=== PATIENT | male | born 1960 | race Caucasian/White ===

== ENCOUNTER 2023-11-24 04:04 | Emergency (ER) | payer BC ==
[2023-11-24 04:15] VITALS: PULSE 81; TEMP 98.3; BMI 22.9
[2023-11-24 05:12] LABS: EPI CELLS 1 /uL (0-25.1); HYALINE CASTS 0 /uL (0-3.1); PH,URINE 5.5 (5.0-8.0); URINE APPEARANCE CLEAR; URINE BILIRUBIN NEGATIVE (NEGATIVE); URINE COLOR DK YELLOW; URINE GLUCOSE (UA) NEGATIVE (NEGATIVE); URINE KETONE NEGATIVE (NEGATIVE); URINE LEUK ESTERASE TRACE (NEGATIVE); URINE NITRITE POSITIVE (NEGATIVE); URINE PROTEIN 1+ (NEGATIVE); URINE RBC 184 /uL (0-23.9); URINE WBC 7 /uL (0-25.8)
[2023-11-24 05:28] VITALS: BP 117/72; RESP 16
== END 2023-11-24 05:45 | disposition home or self-care (01) ==
LOC: JER 04:04
PROC: 0T2BX0Z Change Drainage Device in Bladder, External Approach (ICD-10-PCS; principal; 2023-11-24)
DX: R33.9 Retention of urine, unspecified (principal); R19.09 Other intra-abdominal and pelvic swelling, mass and lump; R14.0 Abdominal distension (gaseous)
CPT/HCPCS: 81003; 87086; 99283-25

== ENCOUNTER 2023-12-10 14:14 | Emergency (ER) | payer BC ==
[2023-12-10 14:39] VITALS: BP 138/85; PULSE 81; RESP 18; TEMP 98; BMI 22.9
[2023-12-10 15:05] LABS: EPI CELLS 0 /uL (0-25.1); HYALINE CASTS 1 /uL (0-3.1); URINE APPEARANCE CLOUDY; URINE BACTERIA 327 /uL (0-1359); URINE BILIRUBIN NEGATIVE (NEGATIVE); URINE COLOR YELLOW; URINE GLUCOSE (UA) NEGATIVE (NEGATIVE); URINE KETONE NEGATIVE (NEGATIVE); URINE LEUK ESTERASE 3+ (NEGATIVE); URINE NITRITE NEGATIVE (NEGATIVE); URINE PROTEIN 1+ (NEGATIVE); URINE UROBILINOGEN 0.2 mg/dL (0.2-1.0); URINE WBC 1400 /uL (0-25.8)
[2023-12-10 15:21] LABS: URINE RBC 329.8 /uL (0-23.9); YEAST NEGATIVE (NEGATIVE)
[2023-12-10 15:57] LABS: BASO % 0.3 % (0-2.0); HEMATOCRIT 41.1 % (35.4-49); LYMPH % 5.3 % (8-40); MCH 30.5 pg (25.7-33.7); MEAN CELL VOLUME 89.6 fl (80-96); MONO % 5.7 % (3.8-10.2); NEUT % 88.7 % (42.8-82.8); PLATELET COUNT 202 10^3/uL (134-434); RBC 4.58 M/mm3 (4.00-5.60); WHITE BLOOD COUNT 11.8 K/mm3 (4.0-10.0)
[2023-12-10 16:20] LABS: POTASSIUM 4.5 mmol/L (3.5-5.1)
[2023-12-10 16:21] LABS: CALCIUM 10.4 mg/dL (8.5-10.1)
[2023-12-10 16:22] LABS: BLOOD UREA NITROGEN 14.6 mg/dL (7-18)
[2023-12-10 16:25] LABS: CREATININE 0.8 mg/dL (0.55-1.3)
== END 2023-12-10 17:35 | disposition home or self-care (01) ==
LOC: JERFT 14:14
DX: R33.9 Retention of urine, unspecified (principal); N30.01 Acute cystitis with hematuria
CPT/HCPCS: 36415; 76775-TC; 80048; 81003; 85025; 87086; 87186; 99284-25

== ENCOUNTER 2023-12-12 21:03 | Inpatient (IN) | payer BC ==
[2023-12-12 22:50] LABS: BASO % 0.5 % (0-2.0); HEMATOCRIT 39.7 % (35.4-49); HEMOGLOBIN 13.7 GM/dL (11.7-16.9); MCH 30.8 pg (25.7-33.7); MCHC 34.6 g/dl (32.0-35.9); MEAN PLT VOLUME 8.4 fl (7.5-11.1); MONO % 8.3 % (3.8-10.2); NEUT % 79.2 % (42.8-82.8); PLATELET COUNT 205 10^3/uL (134-434); RBC 4.45 M/mm3 (4.00-5.60); RDW 13.4 % (11.9-15.9); WHITE BLOOD COUNT 8.2 K/mm3 (4.0-10.0)
[2023-12-12] MEDS: MEROPENEM 2 GM in SODIUM CHLORIDE 100 ML IVPB ONE (23:05)
[2023-12-12 23:15] LABS: ALBUMIN 3.5 g/dl (3.4-5.0); CALCIUM 10.2 mg/dL (8.5-10.1)
[2023-12-12 23:16] LABS: BLOOD UREA NITROGEN 21.9 mg/dL (7-18)
[2023-12-12 23:19] LABS: CREATININE 0.8 mg/dL (0.55-1.3)
[2023-12-12 23:20] LABS: BILIRUBIN,TOTAL 0.5 mg/dL (0.2-1); TOT PROT 6.7 g/dl (6.4-8.2)
[2023-12-12 23:51] LABS: EPI CELLS 0 /uL (0-25.1); HYALINE CASTS 0 /uL (0-3.1); PH,URINE 5.5 (5.0-8.0); URINE APPEARANCE CLOUDY; URINE BACTERIA 62 /uL (0-1359); URINE BILIRUBIN NEGATIVE (NEGATIVE); URINE COLOR YELLOW; URINE GLUCOSE (UA) NEGATIVE (NEGATIVE); URINE KETONE NEGATIVE (NEGATIVE); URINE LEUK ESTERASE 3+ (NEGATIVE); URINE NITRITE NEGATIVE (NEGATIVE); URINE PROTEIN 2+ (NEGATIVE); URINE RBC 1576 /uL (0-23.9); URINE UROBILINOGEN 0.2 mg/dL (0.2-1.0); URINE WBC 2395 /uL (0-25.8)
[2023-12-13 06:40] LABS: MCH 30.3 pg (25.7-33.7); MCHC 34.2 g/dl (32.0-35.9); MEAN CELL VOLUME 88.6 fl (80-96); MEAN PLT VOLUME 8.4 fl (7.5-11.1); PLATELET COUNT 191 10^3/uL (134-434); RBC 4.29 M/mm3 (4.00-5.60); RDW 13.1 % (11.9-15.9); WHITE BLOOD COUNT 5.9 K/mm3 (4.0-10.0)
[2023-12-13 07:19] LABS: ALBUMIN 3.3 g/dl (3.4-5.0); BILIRUBIN,TOTAL 0.7 mg/dL (0.2-1); BLOOD UREA NITROGEN 16.9 mg/dL (7-18); CREATININE 0.7 mg/dL (0.55-1.3); MAGNESIUM 2.1 mg/dL (1.8-2.4); PHOSPHOROUS 3.3 mg/dL (2.5-4.9); POTASSIUM 3.8 mmol/L (3.5-5.1); TOT PROT 6.4 g/dl (6.4-8.2)
[2023-12-13] MEDS: TAMSULOSIN HCL 0.4 MG CAP PO SCH (10:54)
[2023-12-13] MEDS: ESCITALOPRAM OXALATE 20 MG TABLET PO SCH (10:54)
[2023-12-13] MEDS: MEROPENEM 500 MG in DEXTROSE 5%-WATER 100 ML IVPB SCH (10:54)
[2023-12-13 13:01] VITALS: BMI 22.6
[2023-12-13] MEDS: MEROPENEM 1 GM in DEXTROSE 5%-WATER 100 ML IVPB SCH (18:00)
[2023-12-13] MEDS ORDERED: MEROPENEM 500 MG in DEXTROSE 5%-WATER 100 ML IVPB SCH (18:00)
[2023-12-13] MEDS: clonazePAM 0.5 MG TABLET PO SCH (21:11)
[2023-12-13] MEDS: ROSUVASTATIN CA 10 MG TABLET PO SCH (21:11)
[2023-12-14 09:27] LABS: BASO % 0.2 % (0-2.0); EOS % 0.1 % (0-4.5); HEMATOCRIT 39.4 % (35.4-49); HEMOGLOBIN 13.8 GM/dL (11.7-16.9); LYMPH % 8.3 % (8-40); MCHC 35.1 g/dl (32.0-35.9); MEAN CELL VOLUME 88.3 fl (80-96); MEAN PLT VOLUME 8.3 fl (7.5-11.1); MONO % 4.4 % (3.8-10.2); PLATELET COUNT 198 10^3/uL (134-434); RBC 4.46 M/mm3 (4.00-5.60); RDW 13.1 % (11.9-15.9); WHITE BLOOD COUNT 7.1 K/mm3 (4.0-10.0)
[2023-12-14 09:55] LABS: POTASSIUM 3.9 mmol/L (3.5-5.1)
[2023-12-14] MEDS ORDERED: MEROPENEM 500 MG in DEXTROSE 5%-WATER 100 ML IVPB SCH (10:00)
[2023-12-14 10:11] LABS: CALCIUM 10.2 mg/dL (8.5-10.1)
[2023-12-14 10:12] LABS: ALBUMIN 3.5 g/dl (3.4-5.0); BLOOD UREA NITROGEN 19.2 mg/dL (7-18); MAGNESIUM 2.1 mg/dL (1.8-2.4)
[2023-12-14 10:15] LABS: CREATININE 0.8 mg/dL (0.55-1.3)
[2023-12-14 10:16] LABS: BILIRUBIN,TOTAL 1.2 mg/dL (0.2-1); TOT PROT 6.7 g/dl (6.4-8.2)
[2023-12-15 09:04] LABS: BASO % 0.5 % (0-2.0); HEMATOCRIT 38.9 % (35.4-49); LYMPH % 15.4 % (8-40); MCH 29.8 pg (25.7-33.7); MCHC 33.3 g/dl (32.0-35.9); MEAN CELL VOLUME 89.4 fl (80-96); MEAN PLT VOLUME 8.6 fl (7.5-11.1); MONO % 8.6 % (3.8-10.2); NEUT % 75.5 % (42.8-82.8); PLATELET COUNT 199 10^3/uL (134-434); RBC 4.35 M/mm3 (4.00-5.60); WHITE BLOOD COUNT 4.8 K/mm3 (4.0-10.0)
[2023-12-15 10:21] LABS: ALBUMIN 3.3 g/dl (3.4-5.0); BILIRUBIN,TOTAL 1.2 mg/dL (0.2-1); BLOOD UREA NITROGEN 17.9 mg/dL (7-18); CALCIUM 9.9 mg/dL (8.5-10.1); CREATININE 0.7 mg/dL (0.55-1.3); MAGNESIUM 2.1 mg/dL (1.8-2.4); TOT PROT 6.2 g/dl (6.4-8.2)
[2023-12-16 07:28] LABS: CALCIUM 9.8 mg/dL (8.5-10.1)
[2023-12-16 07:29] LABS: ALBUMIN 3.3 g/dl (3.4-5.0); BLOOD UREA NITROGEN 14.4 mg/dL (7-18); MAGNESIUM 2.1 mg/dL (1.8-2.4)
[2023-12-16 07:32] LABS: CREATININE 0.7 mg/dL (0.55-1.3)
[2023-12-16 07:33] LABS: TOT PROT 6.1 g/dl (6.4-8.2)
[2023-12-16 07:37] LABS: BASO % 0.4 % (0-2.0); EOS % 0.1 % (0-4.5); HEMATOCRIT 38.6 % (35.4-49); HEMOGLOBIN 13.1 GM/dL (11.7-16.9); LYMPH % 14.5 % (8-40); MCH 30.3 pg (25.7-33.7); MEAN CELL VOLUME 88.9 fl (80-96); MEAN PLT VOLUME 8.5 fl (7.5-11.1); MONO % 7.7 % (3.8-10.2); NEUT % 77.3 % (42.8-82.8); PLATELET COUNT 198 10^3/uL (134-434); RBC 4.34 M/mm3 (4.00-5.60); RDW 12.9 % (11.9-15.9); WHITE BLOOD COUNT 5.4 K/mm3 (4.0-10.0)
[2023-12-17 09:17] LABS: BASO % 0.5 % (0-2.0); HEMATOCRIT 41.2 % (35.4-49); HEMOGLOBIN 13.8 GM/dL (11.7-16.9); MCH 29.9 pg (25.7-33.7); MCHC 33.6 g/dl (32.0-35.9); MEAN CELL VOLUME 88.9 fl (80-96); MEAN PLT VOLUME 8.8 fl (7.5-11.1); MONO % 4.6 % (3.8-10.2); NEUT % 82.9 % (42.8-82.8); PLATELET COUNT 218 10^3/uL (134-434); RBC 4.63 M/mm3 (4.00-5.60); RDW 12.7 % (11.9-15.9)
[2023-12-17 09:32] LABS: POTASSIUM 4.1 mmol/L (3.5-5.1)
[2023-12-17 09:34] LABS: CALCIUM 10.4 mg/dL (8.5-10.1)
[2023-12-17 09:35] LABS: BLOOD UREA NITROGEN 15.2 mg/dL (7-18)
[2023-12-17 09:38] LABS: CREATININE 0.7 mg/dL (0.55-1.3)
[2023-12-17] MEDS: ERTAPENEM SODIUM 1 GM in SODIUM CHLORIDE 50 ML IVPB SCH (13:59)
[2023-12-17 14:36] VITALS: BP 112/76; PULSE 60; RESP 16; TEMP 97.7
[2023-12-18] MEDS ORDERED: ERTAPENEM SODIUM 1 GM in SODIUM CHLORIDE 50 ML IVPB SCH (10:00)
== END 2023-12-17 15:48 | disposition home or self-care (01) | DRG 690 ==
LOC: JER 21:03 → JERBED 23:47 → J7W 12-13 06:52
PROVIDERS: ADMIT Internal Medicine; ATTEND Nurse Practitioner Acute Care
DX: N10 Acute pyelonephritis (principal); Z16.12 Extended spectrum beta lactamase (ESBL) resistance; K51.90 Ulcerative colitis, unspecified, without complications; E78.5 Hyperlipidemia, unspecified; N40.0 Benign prostatic hyperplasia without lower urinary tract symptoms
CPT/HCPCS: 36415; 76775-TC; 80048; 80053; 81003; 83735; 84100; 85025; 85027; 86140; 87040; 87086; 93005; 93010; 99285-25

== ENCOUNTER 2023-12-18 12:01 | Day surgery (SDC) | payer BC ==
[2023-12-18] MEDS: ERTAPENEM SODIUM 1 GM in SODIUM CHLORIDE 50 ML IVPB ONE (12:25)
[2023-12-18 14:12] VITALS: BP 130/77; PULSE 55; RESP 18; TEMP 97.8
== END 2023-12-18 14:00 | disposition home or self-care (01) ==
LOC: FINJECTION 12:01 → FM/S 12:05 → FINJECTION 14:00
PROVIDERS: ATTEND Internal Medicine
DX: N39.0 Urinary tract infection, site not specified (principal); Z16.12 Extended spectrum beta lactamase (ESBL) resistance
CPT/HCPCS: 96365

== ENCOUNTER 2023-12-19 11:56 | Day surgery (SDC) | payer BC ==
[2023-12-19] MEDS: ERTAPENEM SODIUM 1 GM in DEXTROSE 5%-WATER - 50 ML IVPB ONE (13:05)
[2023-12-19 13:27] LABS: HEMATOCRIT 40.2 % (35.4-49); HEMOGLOBIN 13.5 G/dL (11.7-16.9); MCH 30.5 pg (25.7-33.7); MCHC 33.5 g/dl (32.0-35.9); MEAN CELL VOLUME 90.9 fl (80-96); MEAN PLT VOLUME 8.8 fl (7.5-11.1); PLATELET COUNT 173.2 10^3/uL (134-434); RBC 4.42 10^6/uL (4.00-5.60); RDW 13.5 % (11.9-15.9); WHITE BLOOD COUNT 4.2 10^3/uL (4.0-10.8)
[2023-12-19 13:36] LABS: ANION GAP 6 mmol/L (4-13); CALCIUM 10.3 mg/dl (8.5-10.1); CHLORIDE 103 mmol/L (98-107); CO2 30 mmol/L (21-32); CREATININE 0.7 mg/dl (0.6-1.3); GLUCOSE,RANDOM 114 mg/dl (74-106); SODIUM 139 mmol/L (136-145)
[2023-12-19 19:07] VITALS: BP 110/70; PULSE 60; RESP 18; TEMP 98.5
== END 2023-12-19 14:35 | disposition home or self-care (01) ==
LOC: FINJECTION 11:56 → FM/S 11:59 → FINJECTION 14:35
PROVIDERS: ATTEND Internal Medicine
DX: N39.0 Urinary tract infection, site not specified (principal); Z16.12 Extended spectrum beta lactamase (ESBL) resistance
CPT/HCPCS: 36415; 80048; 85027; 96365

== ENCOUNTER 2023-12-20 11:57 | Day surgery (SDC) | payer BC ==
[2023-12-20] MEDS: ERTAPENEM SODIUM 1 GM in SODIUM CHLORIDE 50 ML IVPB ONE (12:15)
[2023-12-20 13:06] VITALS: BP 115/70; PULSE 75; RESP 16; TEMP 98.1
== END 2023-12-20 13:15 | disposition home or self-care (01) ==
LOC: FINJECTION 11:57 → FM/S 11:58 → FINJECTION 13:15
PROVIDERS: ATTEND Internal Medicine
DX: N39.0 Urinary tract infection, site not specified (principal); Z16.12 Extended spectrum beta lactamase (ESBL) resistance
CPT/HCPCS: 96365

== ENCOUNTER 2023-12-21 11:54 | Day surgery (SDC) | payer BC ==
[2023-12-21] MEDS: ERTAPENEM SODIUM 1 GM in SODIUM CHLORIDE 50 ML IVPB ONE (12:20)
[2023-12-21 12:28] VITALS: RESP 16; TEMP 98.1
[2023-12-21 13:01] VITALS: BP 110/60; PULSE 63
== END 2023-12-21 13:02 | disposition home or self-care (01) ==
LOC: FM/S 11:54 → FINJECTION 11:54
PROVIDERS: ATTEND Internal Medicine
DX: N39.0 Urinary tract infection, site not specified (principal); Z16.12 Extended spectrum beta lactamase (ESBL) resistance
CPT/HCPCS: 96365

== ENCOUNTER 2023-12-22 13:06 | Day surgery (SDC) | payer BC ==
[2023-12-22] MEDS: ERTAPENEM SODIUM 1 GM in SODIUM CHLORIDE 50 ML IVPB SCH (13:49)
[2023-12-22 14:37] VITALS: BP 99/58; PULSE 57; RESP 14; TEMP 98.2
== END 2023-12-22 14:32 | disposition home or self-care (01) ==
LOC: FINJECTION 13:06 → FM/S 13:07 → FINJECTION 14:32
PROVIDERS: ATTEND Internal Medicine
DX: N39.0 Urinary tract infection, site not specified (principal); Z16.12 Extended spectrum beta lactamase (ESBL) resistance
CPT/HCPCS: 96365

== ENCOUNTER 2023-12-23 12:17 | Day surgery (SDC) | payer BC ==
[2023-12-23] MEDS: ERTAPENEM SODIUM 1 GM in SODIUM CHLORIDE 50 ML IVPB ONE (12:49)
[2023-12-23 13:27] VITALS: BP 104/68; PULSE 58; RESP 14; TEMP 97.8
== END 2023-12-23 13:27 | disposition home or self-care (01) ==
LOC: FINJECTION 12:17 → FM/S 12:18 → FINJECTION 13:27
PROVIDERS: ATTEND Internal Medicine
DX: N39.0 Urinary tract infection, site not specified (principal); Z16.12 Extended spectrum beta lactamase (ESBL) resistance
CPT/HCPCS: 96367

== ENCOUNTER 2023-12-24 11:18 | Day surgery (SDC) | payer BC ==
[2023-12-24] MEDS: ERTAPENEM SODIUM 1 GM in SODIUM CHLORIDE 50 ML IVPB ONE (11:33)
[2023-12-24 12:22] VITALS: BP 120/72; PULSE 70; RESP 16; TEMP 97.8
== END 2023-12-24 12:23 | disposition home or self-care (01) ==
LOC: FINJECTION 11:18 → FM/S 11:19 → FINJECTION 12:23
PROVIDERS: ATTEND Internal Medicine
DX: N39.0 Urinary tract infection, site not specified (principal); Z16.12 Extended spectrum beta lactamase (ESBL) resistance
CPT/HCPCS: 96365

== ENCOUNTER 2023-12-30 20:36 | Observation (INO) | payer BC ==
[2023-12-30 21:21] LABS: PH,URINE 6.5 (5.0-8.0); URINE APPEARANCE CLEAR; URINE BILIRUBIN NEGATIVE (NEGATIVE); URINE COLOR YELLOW; URINE GLUCOSE (UA) NEGATIVE (NEGATIVE); URINE KETONE NEGATIVE (NEGATIVE); URINE LEUK ESTERASE 3+ (NEGATIVE); URINE NITRITE NEGATIVE (NEGATIVE); URINE PROTEIN NEGATIVE (NEGATIVE); URINE UROBILINOGEN 0.2 mg/dL (0.2-1.0)
[2023-12-30] MEDS ORDERED: ACETAMINOPHEN 325 MG TABLET (FP) ONE (21:37)
[2023-12-30] MEDS: ACETAMINOPHEN 325 MG TABLET (FP) PO ONE (21:41)
[2023-12-30 21:47] LABS: BASO % 0.3 % (0-2.0); HEMOGLOBIN 13.6 GM/dL (11.7-16.9); LYMPH % 6.9 % (8-40); MCH 30.6 pg (25.7-33.7); MCHC 34.8 g/dl (32.0-35.9); MEAN PLT VOLUME 8.4 fl (7.5-11.1); MONO % 7.5 % (3.8-10.2); NEUT % 85.3 % (42.8-82.8); PLATELET COUNT 178 10^3/uL (134-434); RBC 4.44 M/mm3 (4.00-5.60); RDW 13.2 % (11.9-15.9); WHITE BLOOD COUNT 9.3 K/mm3 (4.0-10.0)
[2023-12-30 22:05] LABS: POTASSIUM 3.5 mmol/L (3.5-5.1)
[2023-12-30 22:08] LABS: CALCIUM 10.1 mg/dL (8.5-10.1)
[2023-12-30 22:09] LABS: ALBUMIN 3.6 g/dl (3.4-5.0); BLOOD UREA NITROGEN 20.3 mg/dL (7-18)
[2023-12-30 22:12] LABS: CREATININE 0.9 mg/dL (0.55-1.3)
[2023-12-30 22:14] LABS: BILIRUBIN,TOTAL 1.2 mg/dL (0.2-1); TOT PROT 6.7 g/dl (6.4-8.2)
[2023-12-30 22:16] LABS: EPI CELLS 1 /uL (0-25.1); HYALINE CASTS 1 /uL (0-3.1); URINE BACTERIA 384 /uL (0-1359); URINE RBC 16 /uL (0-23.9); URINE WBC 466 /uL (0-25.8)
[2023-12-30] MEDS ORDERED: MEROPENEM 1 GM VIAL (RESTRICTED TO ID) IVPB ONE (23:58)
[2023-12-31] MEDS: MEROPENEM 1 GM in DEXTROSE 5%-WATER 100 ML IVPB ONE (00:06)
[2023-12-31] MEDS ORDERED: ROSUVASTATIN CA 5 MG TABLET ONE (03:12)
[2023-12-31] MEDS: clonazePAM 0.5 MG TABLET PO ONE (03:16)
[2023-12-31] MEDS: ROSUVASTATIN CA 10 MG TABLET PO ONE (03:16)
[2023-12-31 06:19] LABS: HEMATOCRIT 38.7 % (35.4-49); HEMOGLOBIN 13.1 GM/dL (11.7-16.9); MCH 30.2 pg (25.7-33.7); MCHC 33.9 g/dl (32.0-35.9); MEAN PLT VOLUME 8.7 fl (7.5-11.1); PLATELET COUNT 178 10^3/uL (134-434); RBC 4.35 M/mm3 (4.00-5.60); RDW 13.2 % (11.9-15.9); WHITE BLOOD COUNT 6.1 K/mm3 (4.0-10.0)
[2023-12-31 06:39] LABS: POTASSIUM 3.6 mmol/L (3.5-5.1)
[2023-12-31 06:42] LABS: CALCIUM 9.9 mg/dL (8.5-10.1)
[2023-12-31 06:43] LABS: ALBUMIN 3.5 g/dl (3.4-5.0); BLOOD UREA NITROGEN 16.3 mg/dL (7-18); MAGNESIUM 2.1 mg/dL (1.8-2.4)
[2023-12-31 06:46] LABS: CREATININE 0.7 mg/dL (0.55-1.3); PHOSPHOROUS 3.3 mg/dL (2.5-4.9)
[2023-12-31 06:47] LABS: BILIRUBIN,TOTAL 1.5 mg/dL (0.2-1); TOT PROT 6.5 g/dl (6.4-8.2)
[2023-12-31] MEDS ORDERED: MEROPENEM 1 GM VIAL (RESTRICTED TO ID) IVPB ONE (08:12)
[2023-12-31] MEDS ORDERED: ESCITALOPRAM OXALATE 10 MG TABLET ONE (08:13)
[2023-12-31] MEDS ORDERED: TAMSULOSIN HCL 0.4 MG CAP ONE (08:13)
[2023-12-31] MEDS ORDERED: ENOXAPARIN NA (PORCINE) 40 MG/0.4 ML DISP.SYRIN SQ ONE (08:13)
[2023-12-31] MEDS: TAMSULOSIN HCL 0.4 MG CAP PO SCH (08:18)
[2023-12-31] MEDS: MEROPENEM 1 GM in DEXTROSE 5%-WATER 100 ML IVPB SCH ×2 (08:18→18:28)
[2023-12-31] MEDS: ESCITALOPRAM OXALATE 20 MG TABLET PO SCH (09:01)
[2023-12-31] MEDS: ENOXAPARIN NA (PORCINE) 40 MG/0.4 ML DISP.SYRIN SQ SCH (09:01)
[2023-12-31] MEDS ORDERED: ASPIRIN COATED 81 MG TABLET.EC PO SCH (10:00)
[2023-12-31 18:32] VITALS: RESP 18
[2023-12-31 20:12] VITALS: BMI 22.6
[2023-12-31] MEDS: ROSUVASTATIN CA 10 MG TABLET PO SCH (21:08)
[2023-12-31] MEDS: clonazePAM 0.5 MG TABLET PO SCH (21:08)
[2024-01-01 07:07] LABS: CALCIUM 10.1 mg/dL (8.5-10.1)
[2024-01-01 07:08] LABS: ALBUMIN 3.4 g/dl (3.4-5.0); BLOOD UREA NITROGEN 15.2 mg/dL (7-18)
[2024-01-01 07:14] LABS: BASO % 0.4 % (0-2.0); HEMATOCRIT 38.5 % (35.4-49); HEMOGLOBIN 13.2 GM/dL (11.7-16.9); LYMPH % 10.9 % (8-40); MCH 30.4 pg (25.7-33.7); MCHC 34.4 g/dl (32.0-35.9); MEAN CELL VOLUME 88.5 fl (80-96); MEAN PLT VOLUME 8.6 fl (7.5-11.1); MONO % 8.3 % (3.8-10.2); NEUT % 80.4 % (42.8-82.8); PLATELET COUNT 165 10^3/uL (134-434); RBC 4.35 M/mm3 (4.00-5.60); WHITE BLOOD COUNT 4.8 K/mm3 (4.0-10.0)
[2024-01-01 08:26] LABS: POTASSIUM 3.6 mmol/L (3.5-5.1)
[2024-01-01 08:31] LABS: CREATININE 0.8 mg/dL (0.55-1.3)
[2024-01-01 08:33] LABS: BILIRUBIN,TOTAL 1.4 mg/dL (0.2-1); TOT PROT 6.3 g/dl (6.4-8.2)
[2024-01-01] MEDS: LACTOBACILLUS ACIDOPHILUS 1 TABLET PO SCH (15:27)
[2024-01-02 07:55] LABS: BASO % 0.7 % (0-2.0); EOS % 0.3 % (0-4.5); HEMATOCRIT 38.4 % (35.4-49); LYMPH % 18.9 % (8-40); MCH 30.1 pg (25.7-33.7); MCHC 33.9 g/dl (32.0-35.9); MEAN CELL VOLUME 88.6 fl (80-96); MEAN PLT VOLUME 8.6 fl (7.5-11.1); MONO % 12.6 % (3.8-10.2); NEUT % 67.5 % (42.8-82.8); PLATELET COUNT 165 10^3/uL (134-434); RBC 4.33 M/mm3 (4.00-5.60); RDW 12.8 % (11.9-15.9); WHITE BLOOD COUNT 3.3 K/mm3 (4.0-10.0)
[2024-01-02 08:12] LABS: POTASSIUM 4.2 mmol/L (3.5-5.1)
[2024-01-02 08:24] LABS: BLOOD UREA NITROGEN 13.9 mg/dL (7-18)
[2024-01-02 09:30] LABS: ALBUMIN 3.3 g/dl (3.4-5.0); BILIRUBIN,TOTAL 1.4 mg/dL (0.2-1); CREATININE 0.7 mg/dL (0.55-1.3); MAGNESIUM 2.1 mg/dL (1.8-2.4); TOT PROT 6.2 g/dl (6.4-8.2)
[2024-01-03 09:00] LABS: BASO % 0.6 % (0-2.0); EOS % 0.2 % (0-4.5); HEMATOCRIT 39.9 % (35.4-49); HEMOGLOBIN 13.6 GM/dL (11.7-16.9); LYMPH % 21.4 % (8-40); MCH 30.1 pg (25.7-33.7); MEAN CELL VOLUME 88.4 fl (80-96); MEAN PLT VOLUME 7.9 fl (7.5-11.1); MONO % 15.7 % (3.8-10.2); NEUT % 62.1 % (42.8-82.8); PLATELET COUNT 172 10^3/uL (134-434); RBC 4.51 M/mm3 (4.00-5.60); RDW 13.3 % (11.9-15.9); WHITE BLOOD COUNT 2.8 K/mm3 (4.0-10.0)
[2024-01-03 09:21] LABS: POTASSIUM 4.2 mmol/L (3.5-5.1)
[2024-01-03 09:25] LABS: ALBUMIN 3.5 g/dl (3.4-5.0); BLOOD UREA NITROGEN 17.9 mg/dL (7-18); CALCIUM 10.6 mg/dL (8.5-10.1)
[2024-01-03 09:29] LABS: CREATININE 0.7 mg/dL (0.55-1.3)
[2024-01-03 09:30] LABS: BILIRUBIN,TOTAL 1.1 mg/dL (0.2-1); TOT PROT 6.7 g/dl (6.4-8.2)
[2024-01-03] MEDS: ERTAPENEM SODIUM 1 GM in SODIUM CHLORIDE 50 ML IVPB SCH (10:30)
[2024-01-04 08:26] LABS: HEMATOCRIT 37.4 % (35.4-49); HEMOGLOBIN 12.7 GM/dL (11.7-16.9); MCH 30.1 pg (25.7-33.7); MEAN CELL VOLUME 88.4 fl (80-96); MEAN PLT VOLUME 8.8 fl (7.5-11.1); PLATELET COUNT 162 10^3/uL (134-434); RBC 4.23 M/mm3 (4.00-5.60); RDW 12.9 % (11.9-15.9); WHITE BLOOD COUNT 3.1 K/mm3 (4.0-10.0)
[2024-01-04 08:41] LABS: POTASSIUM 4.1 mmol/L (3.5-5.1)
[2024-01-04 08:43] LABS: BLOOD UREA NITROGEN 15.9 mg/dL (7-18); CALCIUM 9.9 mg/dL (8.5-10.1)
[2024-01-04 08:47] LABS: CREATININE 0.7 mg/dL (0.55-1.3)
[2024-01-04 13:13] VITALS: BP 115/70; PULSE 58; TEMP 98
== END 2024-01-04 13:30 | disposition home or self-care (01) ==
LOC: JER 20:36 → JERBED 23:45 → UNDOADMOB 23:45 → OBSVTOIN 12-31 01:59 → INTOOBSV 12-31 01:59 → JERBED 12-31 09:13 → J7W 12-31 18:07
PROVIDERS: ADMIT Internal Medicine; ATTEND Internal Medicine
DX: N39.0 Urinary tract infection, site not specified (principal); B96.20 Unspecified Escherichia coli [E. coli] as the cause of diseases classified elsewhere; K51.90 Ulcerative colitis, unspecified, without complications; E78.5 Hyperlipidemia, unspecified; N40.0 Benign prostatic hyperplasia without lower urinary tract symptoms; F41.8 Other specified anxiety disorders
CPT/HCPCS: 0241U-QW; 36415; 36569; 74177-TC; 76872-TC; 80048; 80053; 81003; 83735; 84100; 85025; 85027; 86140; 87040; 87086; 87186; 93005; 93010; 96365; 96366; 96367; 99285-25; G0378

== ENCOUNTER 2024-01-07 11:30 | Day surgery (SDC) | payer BC ==
[2024-01-07] MEDS: ERTAPENEM SODIUM 1 GM in SODIUM CHLORIDE 50 ML IVPB ONE (11:56)
[2024-01-07 12:29] VITALS: BP 123/61; PULSE 74; RESP 17; TEMP 98.2
[2024-01-07 12:34] LABS: HEMATOCRIT 41.8 % (35.4-49); HEMOGLOBIN 14.1 G/dL (11.7-16.9); MCH 30.2 pg (25.7-33.7); MCHC 33.7 g/dl (32.0-35.9); MEAN CELL VOLUME 89.8 fl (80-96); MEAN PLT VOLUME 8.9 fl (7.5-11.1); PLATELET COUNT 155.9 10^3/uL (134-434); RBC 4.66 10^6/uL (4.00-5.60); RDW 13.6 % (11.9-15.9); WHITE BLOOD COUNT 3.5 10^3/uL (4.0-10.8)
[2024-01-07 12:53] LABS: ALBUMIN 4.3 g/dl (3.4-5.0); ALK PHOS 74 U/L (45-117); ANION GAP 7 mmol/L (4-13); BILIRUBIN,TOTAL 1.2 mg/dl (0.2-1); CALCIUM 10.4 mg/dl (8.5-10.1); CHLORIDE 104 mmol/L (98-107); CO2 28 mmol/L (21-32); CREATININE 0.8 mg/dl (0.6-1.3); GLUCOSE,RANDOM 146 mg/dl (74-106); SGOT/AST 27 U/L (15-37); SGPT/ALT 30 U/L (7-52); SODIUM 139 mmol/L (136-145); TOT PROT 6.7 g/dl (6.4-8.2)
== END 2024-01-07 12:32 | disposition home or self-care (01) ==
LOC: FM/S 11:30 → FINFUSION 11:30
PROVIDERS: ATTEND Internal Medicine
DX: N39.0 Urinary tract infection, site not specified (principal); Z16.12 Extended spectrum beta lactamase (ESBL) resistance
CPT/HCPCS: 36415; 80053; 85027; 86140; 96365

== ENCOUNTER 2024-01-08 12:51 | Day surgery (SDC) | payer BC ==
[2024-01-08] MEDS: ERTAPENEM SODIUM 1 GM in SODIUM CHLORIDE 50 ML IVPB ONE (13:09)
[2024-01-08 13:58] VITALS: BP 120/73; PULSE 82; RESP 16; TEMP 98
== END 2024-01-08 13:59 | disposition home or self-care (01) ==
LOC: FINFUSION 12:51 → FM/S 12:51 → FINFUSION 13:59
PROVIDERS: ATTEND Internal Medicine
DX: N39.0 Urinary tract infection, site not specified (principal); Z16.12 Extended spectrum beta lactamase (ESBL) resistance
CPT/HCPCS: 96365

== ENCOUNTER 2024-01-09 11:40 | Day surgery (SDC) | payer BC ==
[2024-01-09] MEDS: ERTAPENEM SODIUM 1 GM in SODIUM CHLORIDE 50 ML IVPB ONE (12:10)
[2024-01-09 13:11] VITALS: BP 125/71; PULSE 55; RESP 17; TEMP 98.2
== END 2024-01-09 12:45 | disposition home or self-care (01) ==
LOC: FM/S 11:40 → FINFUSION 11:40
PROVIDERS: ATTEND Internal Medicine
DX: N39.0 Urinary tract infection, site not specified (principal); Z16.12 Extended spectrum beta lactamase (ESBL) resistance
CPT/HCPCS: 96365

== ENCOUNTER 2024-01-10 12:31 | Day surgery (SDC) | payer BC ==
[2024-01-10] MEDS: ERTAPENEM SODIUM 1 GM in SODIUM CHLORIDE 50 ML IVPB ONE (12:55)
[2024-01-10 14:38] VITALS: BP 134/64; PULSE 76; RESP 18; TEMP 97.8
== END 2024-01-10 13:40 | disposition home or self-care (01) ==
LOC: FINFUSION 12:31 → FM/S 12:32 → FINFUSION 13:40
PROVIDERS: ATTEND Internal Medicine
DX: N39.0 Urinary tract infection, site not specified (principal); Z16.12 Extended spectrum beta lactamase (ESBL) resistance
CPT/HCPCS: 96365

== ENCOUNTER 2024-01-11 12:36 | Day surgery (SDC) | payer BC ==
[2024-01-11] MEDS: ERTAPENEM SODIUM 1 GM in SODIUM CHLORIDE 50 ML IVPB ONE (12:58)
[2024-01-11 13:15] VITALS: BP 100/63; PULSE 72; RESP 18; TEMP 97.8
== END 2024-01-11 13:34 | disposition home or self-care (01) ==
LOC: FINFUSION 12:36 → FM/S 12:36 → FINFUSION 13:34
PROVIDERS: ATTEND Internal Medicine
DX: N39.0 Urinary tract infection, site not specified (principal); Z16.12 Extended spectrum beta lactamase (ESBL) resistance
CPT/HCPCS: 96365

== ENCOUNTER 2024-01-12 13:18 | Day surgery (SDC) | payer BC ==
[2024-01-12] MEDS: ERTAPENEM SODIUM 1 GM in SODIUM CHLORIDE 50 ML IVPB SCH (13:55)
[2024-01-12 15:09] VITALS: BP 105/66; PULSE 51; RESP 18; TEMP 98.9
== END 2024-01-12 14:30 | disposition home or self-care (01) ==
LOC: FINFUSION 13:18 → FM/S 13:40 → FINFUSION 14:30
PROVIDERS: ATTEND Internal Medicine
DX: N39.0 Urinary tract infection, site not specified (principal); Z16.12 Extended spectrum beta lactamase (ESBL) resistance
CPT/HCPCS: 96365

== ENCOUNTER 2024-01-13 12:12 | Day surgery (SDC) | payer BC ==
[2024-01-13] MEDS: ERTAPENEM SODIUM 1 GM in SODIUM CHLORIDE 50 ML IVPB ONE (12:42)
[2024-01-13 13:34] VITALS: BP 121/68; PULSE 78; RESP 14; TEMP 97.8
== END 2024-01-13 13:34 | disposition home or self-care (01) ==
LOC: FINFUSION 12:12 → FM/S 12:13 → FINFUSION 13:34
PROVIDERS: ATTEND Internal Medicine
DX: N39.0 Urinary tract infection, site not specified (principal); Z16.12 Extended spectrum beta lactamase (ESBL) resistance
CPT/HCPCS: 96365

== ENCOUNTER 2024-01-14 11:53 | Day surgery (SDC) | payer BC ==
[2024-01-14] MEDS: ERTAPENEM SODIUM 1 GM in SODIUM CHLORIDE 50 ML IVPB ONE (12:32)
[2024-01-14 13:41] VITALS: BP 105/65; PULSE 57; RESP 16; TEMP 97.6
[2024-01-14 13:55] LABS: HEMATOCRIT 42.5 % (35.4-49); HEMOGLOBIN 14.4 G/dL (11.7-16.9); MCH 30.7 pg (25.7-33.7); MCHC 33.8 g/dl (32.0-35.9); MEAN CELL VOLUME 90.9 fl (80-96); MEAN PLT VOLUME 9.1 fl (7.5-11.1); PLATELET COUNT 154.6 10^3/uL (134-434); RBC 4.68 10^6/uL (4.00-5.60); RDW 13.4 % (11.9-15.9); WHITE BLOOD COUNT 4.9 10^3/uL (4.0-10.8)
[2024-01-14 14:41] LABS: ALBUMIN 4.3 g/dl (3.4-5.0); BILIRUBIN,TOTAL 1.2 mg/dl (0.2-1); CALCIUM 10.8 mg/dl (8.5-10.1); CREATININE 0.8 mg/dl (0.6-1.3); POTASSIUM 4.3 mmol/L (3.5-5.1); TOT PROT 6.8 g/dl (6.4-8.2)
== END 2024-01-14 13:45 | disposition home or self-care (01) ==
LOC: FINFUSION 11:53 → FM/S 11:55 → FINFUSION 13:45
PROVIDERS: ATTEND Internal Medicine
DX: N39.0 Urinary tract infection, site not specified (principal); Z16.12 Extended spectrum beta lactamase (ESBL) resistance
CPT/HCPCS: 36415; 80053; 85027; 86140; 96365

== ENCOUNTER 2024-01-15 11:43 | Day surgery (SDC) | payer BC ==
[2024-01-15] MEDS: ERTAPENEM SODIUM 1 GM in SODIUM CHLORIDE 50 ML IVPB ONE (12:15)
[2024-01-15 14:38] VITALS: BP 105/65; PULSE 56; RESP 18; TEMP 97.7
== END 2024-01-15 12:50 | disposition home or self-care (01) ==
LOC: FINFUSION 11:43 → FM/S 11:44 → FINFUSION 12:50
PROVIDERS: ATTEND Internal Medicine
DX: N39.0 Urinary tract infection, site not specified (principal); Z16.12 Extended spectrum beta lactamase (ESBL) resistance
CPT/HCPCS: 96365

== ENCOUNTER 2024-01-16 11:26 | Day surgery (SDC) | payer BC ==
[2024-01-16] MEDS: ERTAPENEM SODIUM 1 GM in SODIUM CHLORIDE 50 ML IVPB ONE (12:03)
[2024-01-16 13:01] VITALS: BP 115/68; PULSE 56; RESP 18; TEMP 97.9
== END 2024-01-16 13:02 | disposition home or self-care (01) ==
LOC: FINFUSION 11:26 → FM/S 11:27 → FINFUSION 13:02
PROVIDERS: ATTEND Internal Medicine
DX: N39.0 Urinary tract infection, site not specified (principal); Z16.12 Extended spectrum beta lactamase (ESBL) resistance
CPT/HCPCS: 96365

== ENCOUNTER 2024-01-17 11:39 | Day surgery (SDC) | payer BC ==
[2024-01-17] MEDS: ERTAPENEM SODIUM 1 GM in SODIUM CHLORIDE 50 ML IVPB ONE (12:06)
[2024-01-17 12:16] VITALS: PULSE 65; RESP 18; TEMP 98.1
[2024-01-17 12:50] VITALS: BP 149/74
== END 2024-01-17 12:50 | disposition home or self-care (01) ==
LOC: FINFUSION 11:39 → FM/S 11:40 → FINFUSION 12:50
PROVIDERS: ATTEND Internal Medicine
DX: N39.0 Urinary tract infection, site not specified (principal); Z16.12 Extended spectrum beta lactamase (ESBL) resistance
CPT/HCPCS: 96365

== ENCOUNTER 2024-01-18 12:19 | Day surgery (SDC) | payer BC ==
[2024-01-18] MEDS: ERTAPENEM SODIUM 1 GM in SODIUM CHLORIDE 50 ML IVPB ONE (12:53)
[2024-01-18 13:33] VITALS: BP 110/65; PULSE 78; RESP 16; TEMP 98.9
== END 2024-01-18 13:34 | disposition home or self-care (01) ==
LOC: FINFUSION 12:19 → FM/S 12:20 → FINFUSION 13:34
PROVIDERS: ATTEND Internal Medicine
DX: N39.0 Urinary tract infection, site not specified (principal); Z16.12 Extended spectrum beta lactamase (ESBL) resistance
CPT/HCPCS: 96365

== ENCOUNTER 2024-01-19 12:20 | Day surgery (SDC) | payer BC ==
[2024-01-19] MEDS: ERTAPENEM SODIUM 1 GM in SODIUM CHLORIDE 50 ML IVPB SCH (12:44)
[2024-01-19 13:03] VITALS: RESP 18; TEMP 98.2
[2024-01-19 13:28] VITALS: BP 112/62; PULSE 86
== END 2024-01-19 13:28 | disposition home or self-care (01) ==
LOC: FINFUSION 12:20 → FM/S 12:20 → FINFUSION 13:28
PROVIDERS: ATTEND Internal Medicine
DX: N39.0 Urinary tract infection, site not specified (principal); Z16.12 Extended spectrum beta lactamase (ESBL) resistance
CPT/HCPCS: 96365

== ENCOUNTER 2024-01-20 12:02 | Day surgery (SDC) | payer BC ==
[2024-01-20] MEDS: ERTAPENEM SODIUM 1 GM in SODIUM CHLORIDE 50 ML IVPB ONE (12:15)
[2024-01-20 12:57] VITALS: BP 110/68; PULSE 65; RESP 16; TEMP 97.8
== END 2024-01-20 12:59 | disposition home or self-care (01) ==
LOC: FINFUSION 12:02 → FM/S 12:02 → FINFUSION 12:59
PROVIDERS: ATTEND Internal Medicine
DX: N39.0 Urinary tract infection, site not specified (principal); Z16.12 Extended spectrum beta lactamase (ESBL) resistance
CPT/HCPCS: 96365

== ENCOUNTER 2024-01-21 11:19 | Day surgery (SDC) | payer BC ==
[2024-01-21 11:42] LABS: HEMATOCRIT 42.6 % (35.4-49); HEMOGLOBIN 14.3 G/dL (11.7-16.9); MCH 30.3 pg (25.7-33.7); MCHC 33.5 g/dl (32.0-35.9); MEAN CELL VOLUME 90.5 fl (80-96); MEAN PLT VOLUME 8.9 fl (7.5-11.1); PLATELET COUNT 160.2 10^3/uL (134-434); RBC 4.71 10^6/uL (4.00-5.60); RDW 13.6 % (11.9-15.9)
[2024-01-21] MEDS: ERTAPENEM SODIUM 1 GM in SODIUM CHLORIDE 50 ML IVPB ONE (11:52)
[2024-01-21 12:03] LABS: ALBUMIN 4.3 g/dl (3.4-5.0); ALK PHOS 75 U/L (45-117); ANION GAP 7 mmol/L (4-13); BILIRUBIN,TOTAL 1.3 mg/dl (0.2-1); CALCIUM 10.3 mg/dl (8.5-10.1); CHLORIDE 103 mmol/L (98-107); CO2 29 mmol/L (21-32); CREATININE 0.8 mg/dl (0.6-1.3); GLUCOSE,RANDOM 108 mg/dl (74-106); POTASSIUM 4.1 mmol/L (3.5-5.1); SGOT/AST 27 U/L (15-37); SGPT/ALT 42 U/L (7-52); SODIUM 139 mmol/L (136-145); TOT PROT 6.7 g/dl (6.4-8.2)
[2024-01-21 12:36] VITALS: BP 100/76; PULSE 64; RESP 16; TEMP 98.4
== END 2024-01-21 12:00 | disposition home or self-care (01) ==
LOC: FINFUSION 11:19 → FM/S 11:25 → FINFUSION 12:30
PROVIDERS: ATTEND Internal Medicine
DX: N39.0 Urinary tract infection, site not specified (principal); Z16.12 Extended spectrum beta lactamase (ESBL) resistance
CPT/HCPCS: 36415; 80053; 85027; 86140; 96365

== ENCOUNTER 2024-01-22 12:18 | Day surgery (SDC) | payer BC ==
[2024-01-22] MEDS: ERTAPENEM SODIUM 1 GM in SODIUM CHLORIDE 50 ML IVPB ONE (12:36)
[2024-01-22 13:21] VITALS: BP 109/65; PULSE 58; RESP 19; TEMP 98.1
== END 2024-01-22 13:22 | disposition home or self-care (01) ==
LOC: FINFUSION 12:18 → FM/S 12:19 → FINFUSION 13:22
PROVIDERS: ATTEND Internal Medicine
DX: N39.0 Urinary tract infection, site not specified (principal); Z16.12 Extended spectrum beta lactamase (ESBL) resistance
CPT/HCPCS: 96365

== ENCOUNTER 2024-01-23 11:59 | Day surgery (SDC) | payer BC ==
[2024-01-23] MEDS: ERTAPENEM SODIUM 1 GM in SODIUM CHLORIDE 50 ML IVPB ONE (12:29)
[2024-01-23 13:16] VITALS: BP 157/78; PULSE 56; RESP 18; TEMP 98.3
== END 2024-01-23 12:00 | disposition home or self-care (01) ==
LOC: FINFUSION 11:59 → FM/S 12:01
PROVIDERS: ATTEND Internal Medicine
DX: N39.0 Urinary tract infection, site not specified (principal); Z16.12 Extended spectrum beta lactamase (ESBL) resistance
CPT/HCPCS: 96365

== ENCOUNTER 2024-01-24 11:41 | Day surgery (SDC) | payer BC ==
[2024-01-24] MEDS: ERTAPENEM SODIUM 1 GM in SODIUM CHLORIDE 50 ML IVPB ONE (11:54)
[2024-01-24 12:21] VITALS: BP 100/70; PULSE 72; RESP 18; TEMP 97.8
== END 2024-01-24 12:32 | disposition home or self-care (01) ==
LOC: FINFUSION 11:41 → FM/S 11:42 → FINFUSION 12:32
PROVIDERS: ATTEND Internal Medicine
DX: N39.0 Urinary tract infection, site not specified (principal); B96.89 Other specified bacterial agents as the cause of diseases classified elsewhere; Z16.12 Extended spectrum beta lactamase (ESBL) resistance
CPT/HCPCS: 96365

== ENCOUNTER 2024-01-25 12:09 | Day surgery (SDC) | payer BC ==
[2024-01-25] MEDS: ERTAPENEM SODIUM 1 GM in SODIUM CHLORIDE 50 ML IVPB ONE (12:39)
[2024-01-25 13:13] VITALS: BP 127/65; PULSE 68; RESP 18; TEMP 97.8
== END 2024-01-25 13:34 | disposition home or self-care (01) ==
LOC: FINFUSION 12:09 → FM/S 12:09 → FINFUSION 13:34
PROVIDERS: ATTEND Internal Medicine
DX: N39.0 Urinary tract infection, site not specified (principal); Z16.12 Extended spectrum beta lactamase (ESBL) resistance
CPT/HCPCS: 96365

== ENCOUNTER 2024-01-26 12:36 | Day surgery (SDC) | payer BC ==
[2024-01-26] MEDS: ERTAPENEM SODIUM 1 GM in SODIUM CHLORIDE 50 ML IVPB SCH (13:48)
[2024-01-26 14:53] VITALS: BP 114/66; PULSE 51; RESP 14; TEMP 97.8
== END 2024-01-26 14:53 | disposition home or self-care (01) ==
LOC: FINFUSION 12:36 → FM/S 13:25 → FINFUSION 14:53
PROVIDERS: ATTEND Internal Medicine
DX: N39.0 Urinary tract infection, site not specified (principal); Z16.12 Extended spectrum beta lactamase (ESBL) resistance
CPT/HCPCS: 96365

== ENCOUNTER 2024-01-27 11:33 | Day surgery (SDC) | payer BC ==
[2024-01-27] MEDS: ERTAPENEM SODIUM 1 GM in SODIUM CHLORIDE 50 ML IVPB ONE (12:35)
[2024-01-27 13:31] VITALS: BP 100/58; PULSE 60; RESP 18; TEMP 98.2
== END 2024-01-27 13:10 | disposition home or self-care (01) ==
LOC: FINFUSION 11:33 → FM/S 11:38 → FINFUSION 13:10
PROVIDERS: ATTEND Internal Medicine
DX: N39.0 Urinary tract infection, site not specified (principal); Z16.12 Extended spectrum beta lactamase (ESBL) resistance
CPT/HCPCS: 96365

== ENCOUNTER 2024-01-28 11:23 | Day surgery (SDC) | payer BC ==
[2024-01-28] MEDS: ERTAPENEM SODIUM 1 GM in SODIUM CHLORIDE 50 ML IVPB ONE (12:03)
[2024-01-28 12:36] LABS: HEMATOCRIT 44.1 % (35.4-49); HEMOGLOBIN 14.4 G/dL (11.7-16.9); MCH 29.6 pg (25.7-33.7); MCHC 32.7 g/dl (32.0-35.9); MEAN CELL VOLUME 90.7 fl (80-96); MEAN PLT VOLUME 9.1 fl (7.5-11.1); PLATELET COUNT 152.8 10^3/uL (134-434); RBC 4.86 10^6/uL (4.00-5.60); RDW 14.1 % (11.9-15.9); WHITE BLOOD COUNT 3.6 10^3/uL (4.0-10.8)
[2024-01-28 12:51] VITALS: BP 127/75; PULSE 70; RESP 16; TEMP 98.1
[2024-01-28 13:09] LABS: ALBUMIN 4.4 g/dl (3.4-5.0); ALK PHOS 86 U/L (45-117); ANION GAP 9 mmol/L (4-13); BILIRUBIN,TOTAL 1.4 mg/dl (0.2-1); CALCIUM 10.6 mg/dl (8.5-10.1); CHLORIDE 103 mmol/L (98-107); CO2 28 mmol/L (21-32); CREATININE 0.8 mg/dl (0.6-1.3); GLUCOSE,RANDOM 108 mg/dl (74-106); POTASSIUM 3.9 mmol/L (3.5-5.1); SGOT/AST 27 U/L (15-37); SGPT/ALT 46 U/L (7-52); SODIUM 140 mmol/L (136-145); TOT PROT 6.7 g/dl (6.4-8.2)
== END 2024-01-28 12:52 | disposition home or self-care (01) ==
LOC: FINFUSION 11:23 → FM/S 11:24 → FINFUSION 12:52
PROVIDERS: ATTEND Internal Medicine
DX: N39.0 Urinary tract infection, site not specified (principal); Z16.12 Extended spectrum beta lactamase (ESBL) resistance
CPT/HCPCS: 36415; 80053; 85027; 86140; 96365

== ENCOUNTER 2024-01-29 12:00 | Day surgery (SDC) | payer BC ==
[2024-01-29] MEDS: ERTAPENEM SODIUM 1 GM in SODIUM CHLORIDE 50 ML IVPB ONE (12:15)
[2024-01-29 12:52] VITALS: BP 126/72; PULSE 71; RESP 18; TEMP 97.9
== END 2024-01-29 12:53 | disposition home or self-care (01) ==
LOC: FINFUSION 12:00 → FM/S 12:01 → FINFUSION 12:53
PROVIDERS: ATTEND Internal Medicine
DX: N39.0 Urinary tract infection, site not specified (principal); Z16.12 Extended spectrum beta lactamase (ESBL) resistance
CPT/HCPCS: 96365

== ENCOUNTER 2024-01-30 12:25 | Day surgery (SDC) | payer BC ==
[2024-01-30] MEDS: ERTAPENEM SODIUM 1 GM in SODIUM CHLORIDE 50 ML IVPB ONE (12:35)
[2024-01-30 13:14] VITALS: BP 103/65; PULSE 61; RESP 17; TEMP 98.5
== END 2024-01-30 13:15 | disposition home or self-care (01) ==
LOC: FINFUSION 12:25 → FM/S 12:25 → FINFUSION 13:15
PROVIDERS: ATTEND Internal Medicine
DX: N39.0 Urinary tract infection, site not specified (principal); Z16.12 Extended spectrum beta lactamase (ESBL) resistance
CPT/HCPCS: 96365

== ENCOUNTER 2024-01-31 12:08 | Day surgery (SDC) | payer BC ==
[2024-01-31] MEDS: ERTAPENEM SODIUM 1 GM in SODIUM CHLORIDE 50 ML IVPB ONE (12:35)
[2024-01-31 18:21] VITALS: BP 108/67; PULSE 52; RESP 18; TEMP 98.1
== END 2024-01-31 17:57 | disposition home or self-care (01) ==
LOC: FINFUSION 12:08 → FM/S 12:09 → FINFUSION 17:57
PROVIDERS: ATTEND Internal Medicine
DX: N39.0 Urinary tract infection, site not specified (principal); Z16.12 Extended spectrum beta lactamase (ESBL) resistance
CPT/HCPCS: 96365

== ENCOUNTER 2024-02-01 11:40 | Day surgery (SDC) | payer BC ==
[2024-02-01] MEDS: ERTAPENEM SODIUM 1 GM in SODIUM CHLORIDE 50 ML IVPB ONE (12:00)
[2024-02-01 13:00] VITALS: BP 113/61; PULSE 57; RESP 18; TEMP 97.5
== END 2024-02-01 12:52 | disposition home or self-care (01) ==
LOC: FINFUSION 11:40 → FM/S 11:42 → FINFUSION 12:52
PROVIDERS: ATTEND Internal Medicine
DX: N39.0 Urinary tract infection, site not specified (principal); Z16.12 Extended spectrum beta lactamase (ESBL) resistance
CPT/HCPCS: 96365

== ENCOUNTER 2024-02-02 11:53 | Day surgery (SDC) | payer BC ==
[2024-02-02] MEDS: ERTAPENEM SODIUM 1 GM in SODIUM CHLORIDE 50 ML IVPB SCH (12:19)
[2024-02-02 12:54] VITALS: BP 101/67; PULSE 53; RESP 14; TEMP 97.7
== END 2024-02-02 13:01 | disposition home or self-care (01) ==
LOC: FINFUSION 11:53 → FM/S 11:54 → FINFUSION 13:01
PROVIDERS: ATTEND Internal Medicine
DX: N39.0 Urinary tract infection, site not specified (principal); Z16.12 Extended spectrum beta lactamase (ESBL) resistance
CPT/HCPCS: 96365

== ENCOUNTER 2024-02-03 11:32 | Day surgery (SDC) | payer BC ==
[2024-02-03] MEDS: ERTAPENEM SODIUM 1 GM in SODIUM CHLORIDE 50 ML IVPB ONE (11:57)
[2024-02-03 13:00] VITALS: BP 100/70; PULSE 62; RESP 16; TEMP 98.1
== END 2024-02-03 13:01 | disposition home or self-care (01) ==
LOC: FINFUSION 11:32 → FM/S 11:32 → FINFUSION 13:01
PROVIDERS: ATTEND Internal Medicine
DX: N39.0 Urinary tract infection, site not specified (principal); Z16.12 Extended spectrum beta lactamase (ESBL) resistance
CPT/HCPCS: 96365

== ENCOUNTER 2024-02-04 11:35 | Day surgery (SDC) | payer BC ==
[2024-02-04] MEDS: ERTAPENEM SODIUM 1 GM in SODIUM CHLORIDE 50 ML IVPB ONE (12:00)
[2024-02-04 12:51] VITALS: BP 108/65; PULSE 57; RESP 18; TEMP 97.8
[2024-02-04 13:07] LABS: HEMATOCRIT 43.1 % (35.4-49); HEMOGLOBIN 14.4 G/dL (11.7-16.9); MCH 30.2 pg (25.7-33.7); MCHC 33.4 g/dl (32.0-35.9); MEAN CELL VOLUME 90.4 fl (80-96); PLATELET COUNT 147.3 10^3/uL (134-434); RBC 4.77 10^6/uL (4.00-5.60); RDW 13.6 % (11.9-15.9); WHITE BLOOD COUNT 3.9 10^3/uL (4.0-10.8)
[2024-02-04 13:08] LABS: ALBUMIN 4.3 g/dl (3.4-5.0); BILIRUBIN,TOTAL 1.4 mg/dl (0.2-1); CALCIUM 10.5 mg/dl (8.5-10.1); CREATININE 0.8 mg/dl (0.6-1.3); POTASSIUM 4.1 mmol/L (3.5-5.1); TOT PROT 6.9 g/dl (6.4-8.2)
== END 2024-02-04 12:40 | disposition home or self-care (01) ==
LOC: FINFUSION 11:35 → FM/S 11:36 → FINFUSION 12:40
PROVIDERS: ATTEND Internal Medicine
DX: N39.0 Urinary tract infection, site not specified (principal); Z16.12 Extended spectrum beta lactamase (ESBL) resistance
CPT/HCPCS: 36415; 80053; 85027; 86140; 96365

== ENCOUNTER 2024-02-05 12:21 | Day surgery (SDC) | payer BC ==
[2024-02-05] MEDS: ERTAPENEM SODIUM 1 GM in SODIUM CHLORIDE 50 ML IVPB ONE (12:41)
[2024-02-05 14:40] VITALS: BP 122/70; PULSE 70; RESP 18; TEMP 98.1
== END 2024-02-05 13:54 | disposition home or self-care (01) ==
LOC: FINFUSION 12:21 → FM/S 12:22 → FINFUSION 13:54
PROVIDERS: ATTEND Internal Medicine
DX: N39.0 Urinary tract infection, site not specified (principal); Z16.12 Extended spectrum beta lactamase (ESBL) resistance
CPT/HCPCS: 96365

== ENCOUNTER 2024-02-06 11:45 | Day surgery (SDC) | payer BC ==
[2024-02-06] MEDS: ERTAPENEM SODIUM 1 GM in SODIUM CHLORIDE 50 ML IVPB ONE (12:00)
[2024-02-06 12:42] VITALS: BP 107/63; PULSE 57; RESP 18; TEMP 98.7
== END 2024-02-06 12:40 | disposition home or self-care (01) ==
LOC: FINFUSION 11:45 → FM/S 11:47 → FINFUSION 12:40
PROVIDERS: ATTEND Internal Medicine
DX: N39.0 Urinary tract infection, site not specified (principal); Z16.12 Extended spectrum beta lactamase (ESBL) resistance
CPT/HCPCS: 96365

== ENCOUNTER 2024-02-07 11:36 | Day surgery (SDC) | payer BC ==
[2024-02-07] MEDS: ERTAPENEM SODIUM 1 GM in SODIUM CHLORIDE 50 ML IVPB ONE (12:00)
[2024-02-07 12:42] VITALS: BP 100/66; PULSE 59; RESP 16; TEMP 98.4
== END 2024-02-07 12:46 | disposition home or self-care (01) ==
LOC: FM/S 11:36 → FINFUSION 11:36
PROVIDERS: ATTEND Internal Medicine
DX: N39.0 Urinary tract infection, site not specified (principal); Z16.12 Extended spectrum beta lactamase (ESBL) resistance
CPT/HCPCS: 96365

== ENCOUNTER 2024-02-08 12:13 | Day surgery (SDC) | payer BC ==
[2024-02-08] MEDS: ERTAPENEM SODIUM 1 GM in SODIUM CHLORIDE 50 ML IVPB ONE (12:29)
[2024-02-08 13:33] VITALS: BP 108/69; PULSE 61; RESP 18; TEMP 98
[2024-02-11] MEDS ORDERED: NORMAL SALINE FLUSH 0.9% 5 ML SYRINGE IVPUSH SCH (10:00)
== END 2024-02-08 13:38 | disposition home or self-care (01) ==
LOC: FINFUSION 12:13 → FM/S 12:13 → FINFUSION 13:38
PROVIDERS: ATTEND Internal Medicine
DX: N39.0 Urinary tract infection, site not specified (principal); Z16.12 Extended spectrum beta lactamase (ESBL) resistance
CPT/HCPCS: 96365

== ENCOUNTER 2024-02-09 12:22 | Day surgery (SDC) | payer BC ==
[2024-02-09] MEDS: ERTAPENEM SODIUM 1 GM in SODIUM CHLORIDE 50 ML IVPB SCH (13:17)
[2024-02-09 13:58] VITALS: BP 101/67; PULSE 55; RESP 14; TEMP 97.7
== END 2024-02-09 14:05 | disposition home or self-care (01) ==
LOC: FINFUSION 12:22 → FM/S 12:37 → FINFUSION 14:05
PROVIDERS: ATTEND Internal Medicine
DX: N39.0 Urinary tract infection, site not specified (principal); Z16.12 Extended spectrum beta lactamase (ESBL) resistance
CPT/HCPCS: 96365

== ENCOUNTER 2024-02-10 12:13 | Day surgery (SDC) | payer BC ==
[2024-02-10] MEDS: ERTAPENEM SODIUM 1 GM in SODIUM CHLORIDE 50 ML IVPB ONE (12:51)
[2024-02-10 13:32] VITALS: RESP 16; TEMP 97.6
[2024-02-10 13:44] VITALS: BP 110/57; PULSE 86
== END 2024-02-10 13:45 | disposition home or self-care (01) ==
LOC: FINFUSION 12:13 → FM/S 12:14 → FINFUSION 13:45
PROVIDERS: ATTEND Internal Medicine
DX: N39.0 Urinary tract infection, site not specified (principal); Z16.12 Extended spectrum beta lactamase (ESBL) resistance
CPT/HCPCS: 96365

== ENCOUNTER 2024-02-11 11:47 | Day surgery (SDC) | payer BC ==
[2024-02-11 12:14] VITALS: BP 98/60; PULSE 56; RESP 18; TEMP 98.1
== END 2024-02-11 12:28 | disposition home or self-care (01) ==
LOC: FINFUSION 11:47 → FM/S 11:48 → FINFUSION 12:28
PROVIDERS: ATTEND Internal Medicine
PROC: 3C1ZX8Z Irrigation of Indwelling Device using Irrigating Substance, External Approach (ICD-10-PCS; principal; 2024-02-11)
DX: Z45.2 Encounter for adjustment and management of vascular access device (principal)
CPT/HCPCS: 96523

== ENCOUNTER 2024-02-12 12:20 | Day surgery (SDC) | payer BC | END 2024-02-12 12:30 | disposition home or self-care (01) | LOC: FINFUSION 12:20 → FM/S 12:21 → FINFUSION 12:30 | PROVIDERS: ATTEND Internal Medicine | PROC: 3C1ZX8Z Irrigation of Indwelling Device using Irrigating Substance, External Approach (ICD-10-PCS; principal; 2024-02-12) | DX: Z45.2 Encounter for adjustment and management of vascular access device (principal) | CPT/HCPCS: 96523 ==

== ENCOUNTER 2024-02-17 15:10 | Emergency (ER) | payer BC ==
[2024-02-17 15:30] VITALS: RESP 18; BMI 22.5
[2024-02-17 16:49] LABS: BASO % 0.3 % (0-2.0); EOS % 0.1 % (0-4.5); HEMATOCRIT 40.6 % (35.4-49); HEMOGLOBIN 14.2 GM/dL (11.7-16.9); LYMPH % 7.5 % (8-40); MCH 30.7 pg (25.7-33.7); MEAN CELL VOLUME 87.8 fl (80-96); MEAN PLT VOLUME 8.5 fl (7.5-11.1); MONO % 3.4 % (3.8-10.2); NEUT % 88.7 % (42.8-82.8); PLATELET COUNT 200 10^3/uL (134-434); RBC 4.62 M/mm3 (4.00-5.60); RDW 13.9 % (11.9-15.9); WHITE BLOOD COUNT 6.6 K/mm3 (4.0-10.0)
[2024-02-17 16:52] LABS: EPI CELLS 0.5 /uL (0-25.1); HYALINE CASTS 0.14 /uL (0-3.1); URINE APPEARANCE CLEAR; URINE BACTERIA 0.9 /uL (0-1359); URINE BILIRUBIN NEGATIVE (NEGATIVE); URINE COLOR YELLOW; URINE GLUCOSE (UA) NEGATIVE (NEGATIVE); URINE KETONE NEGATIVE (NEGATIVE); URINE LEUK ESTERASE NEGATIVE (NEGATIVE); URINE NITRITE NEGATIVE (NEGATIVE); URINE PROTEIN NEGATIVE (NEGATIVE); URINE UROBILINOGEN 0.2 mg/dL (0.2-1.0); URINE WBC 1.6 /uL (0-25.8)
[2024-02-17 17:20] LABS: POTASSIUM 4.6 mmol/L (3.5-5.1)
[2024-02-17 17:21] VITALS: BP 119/77; PULSE 92; TEMP 98.6
[2024-02-17 17:21] LABS: CALCIUM 10.1 mg/dL (8.5-10.1)
[2024-02-17 17:23] LABS: BLOOD UREA NITROGEN 19.4 mg/dL (7-18)
[2024-02-17 17:24] LABS: CREATININE 0.8 mg/dL (0.55-1.3)
[2024-02-17 17:27] LABS: BILIRUBIN,TOTAL 1.3 mg/dL (0.2-1); TOT PROT 7.2 g/dl (6.4-8.2)
== END 2024-02-17 19:01 | disposition home or self-care (01) ==
LOC: JER 15:10
DX: R31.9 Hematuria, unspecified (principal)
CPT/HCPCS: 36415; 80053; 81003; 85025; 87086; 99283-25